=== PATIENT | male | born 1975 | race Hispanic/Latino ===

== ENCOUNTER 2018-04-26 05:54 | Emergency (ER) | payer MEDICAID ==
[2018-04-26] MEDS ORDERED: Sodium Chloride 0.9% 1,000 ML IV STA (06:09)
--- NOTE | 2018-04-26 06:12 | ED PDOC ---
Arrival/HPI - General Chief Complaint: Abdominal Pain Time Seen by Provider: 04/26/18 05:55 Historian: Patient - History of Present Illness Narrative History of Present Illness (Text): 04/26/18 06:09 42 year old male smoker, with no significant past medical history, presents to the emergency department with abdominal pain, since 1 hour prior. Patient states he was getting up for work when he felt sharp pain in his epigastric and perumbilical region. Patient states he vomited and was sweating profusely. Patient states he felt fine last night, and did not eat anything out of the ordinary. Patient denies any fever, chills, headache, dizziness, chest pain, shortness of breath, cough, diarrhea, back pain, neck pain, urinary/bowel changes, or any other complaint. Time/Duration: 1 hour Symptom Onset: Sudden Context: Home Past Medical History - Provider Review Nursing Documentation Reviewed: Yes - Psychiatric Hx Substance Use: No Family/Social History - Physician Review Nursing Documentation Reviewed: Yes Family/Social History: No Known Family HX Smoking Status: Light Smoker < 10 Cigarettes Daily Hx Alcohol Use: No Hx Substance Use: No Allergies/Home Meds Allergies/Adverse Reactions: Allergies Penicillins Adverse Reaction (Verified 04/26/18 06:05) DIZZINESS Home Medications: Home Meds Medication Instructions Recorded Confirmed No Known Home Med 04/26/18 04/26/18 Review of Systems - Physician Review All systems were reviewed & negative as marked: Yes - Review of Systems Constitutional: Normal. absent: Fevers, Night Sweats Eyes: Normal ENT: Normal Respiratory: Normal. absent: SOB, Cough Cardiovascular: Normal. absent: Chest Pain Gastrointestinal: Abdominal Pain, Nausea, Vomiting. absent: Diarrhea Genitourinary Male: Normal. absent: Urinary Output Changes Musculoskeletal: Normal. absent: Back Pain, Neck Pain Skin: Normal Neurological: Normal. absent: Headache, Dizziness Endocrine: Normal Hemo/Lymphatic: Normal Psychiatric: Normal Physical Exam Vital Signs Reviewed: Yes Vital Signs Temp Pulse Resp BP Pulse Ox 04/26/18 09:00 98 F 52 L 18 142/74 99 04/26/18 07:40 97.9 F 59 L 18 132/82 100 04/26/18 06:00 97.4 F L 49 L 22 147/86 100 Temperature: Afebrile Blood Pressure: Normal Pulse: Regular Respiratory Rate: Normal Appearance: Positive for: Well-Appearing, Non-Toxic, Comfortable Pain Distress: None Mental Status: Positive for: Alert and Oriented X 3 - Systems Exam Head: Present: Atraumatic, Normocephalic Pupils: Present: PERRL Extroacular Muscles: Present: EOMI Conjunctiva: Present: Normal Mouth: Present: Moist Mucous Membranes Neck: Present: Normal Range of Motion Respiratory/Chest: Present: Clear to Auscultation, Good Air Exchange. No: Respiratory Distress, Accessory Muscle Use Cardiovascular: Present: Regular Rate and Rhythm, Normal S1, S2. No: Murmurs Abdomen: Present: Tenderness (Epigastric and periumbilical tenderness) Back: Present: Normal Inspection Upper Extremity: Present: Normal Inspection. No: Cyanosis, Edema Lower Extremity: Present: Normal Inspection. No: Edema Neurological: Present: GCS=15, CN II-XII Intact, Speech Normal Skin: Present: Warm, Dry, Normal Color. No: Rashes Psychiatric: Present: Alert, Oriented x 3, Normal Insight, Normal Concentration Medical Decision Making ED Course and Treatment: 04/26/18 06:14 Impression: 42 year old male presents with epigastric and periumbilical pain. Plan: -- CT ABD & Pelvis -- Labs -- Pepcid -- Zofran -- Urinalysis -- Reassess and disposition Prior Visits: Notes and results from previous visits were reviewed. Progress Notes: - Lab Interpretations Lab Results: 04/26/18 06:20 04/26/18 06:20 Lab Results 04/26/18 07:05: Urine Opiates Screen Positive H, Urine Methadone Screen Negative , Ur Barbiturates Screen Negative, Ur Phencyclidine Scrn Negative, Ur Amphetamines Screen Negative, U Benzodiazepines Scrn Negative, U Oth Cocaine Metabols Negative, U Cannabinoids Screen Negative 04/26/18 07:05: Urine Color Yellow, Urine Appearance Clear, Urine pH 6.5, Ur Specific [place] 1.015, Urine Protein Negative, Urine Glucose (UA) Negative, Urine Ketones Negative, Urine Blood Negative, Urine Nitrate Negative, Urine Bilirubin Negative, Urine Urobilinogen 0.2, Ur Leukocyte Esterase Negative 04/26/18 06:20: Alcohol, Quantitative < 10 04/26/18 06:20: Sodium 144, Potassium 4.3, Chloride 103, Carbon Dioxide 30, Anion Gap 15, BUN 18, Creatinine 0.8, Est GFR ( Amer) > 60, Est GFR (Non- Af Amer) > 60, Random Glucose 109, Calcium 9.3, Magnesium 1.9, Total Bilirubin 0.3, AST 20, ALT 26, Alkaline Phosphatase 79, Troponin I < 0.01, Total Protein 7.6, Albumin 4.4, Globulin 3.3, Albumin/Globulin Ratio 1.3, Lipase 99 04/26/18 06:20: WBC 4.9, RBC 4.88, Hgb 14.6, Hct 42.1, MCV 86.3, MCH 29.9, MCHC 34.7, RDW 12.5, Plt Count 132, MPV 9.1, Gran % 51.2, Lymph % (Auto) 37.1 H, [place] % (Auto) 8.2 H, Eos % (Auto) 3.3, Baso % (Auto) 0.2, Gran # 2.50, Lymph # ( Auto) 1.8, [place] # (Auto) 0.4, Eos # (Auto) 0.2, Baso # (Auto) 0.01 - RAD Interpretation Radiology Orders: 04/26/18 06:09 ABD & PELVIS IV CONTRAST ONLY [CT] Stat - EKG Interpretation EKG Interpretation (Text): 04/26/18 06:23 Sinus bradycardia at 46 bpm Interpreted by ED Physician: Yes Type: 12 lead EKG Comparison: No previous EKG avail. - Medication Orders Current Medication Orders: Discontinued Medications Famotidine (Pepcid) 20 mg IVP STAT STA Stop: 04/26/18 06:10 Last Admin: 04/26/18 06:22 Dose: 20 mg IVP Administration Document 04/26/18 06:22 AD (Rec: 04/26/18 06:22 AD [id number] Charges for Administration # of IVP Administrations 1 Sodium Chloride (Sodium Chloride 0.9%) 1,000 mls @ 1,000 mls/hr IV .Q1H STA Stop: 04/26/18 07:08 Last Admin: 04/26/18 06:22 Dose: 1,000 mls/hr eMAR Start Stop Document 04/26/18 06:22 AD (Rec: 04/26/18 06:22 AD [id number]) Intravenous Solution Start Date 04/26/18 Start Time 06:22 Ondansetron HCl (Zofran Inj) 4 mg IVP STAT STA Stop: 04/26/18 06:10 Last Admin: 04/26/18 06:22 Dose: 4 mg IVP Administration Document 04/26/18 06:22 AD (Rec: 04/26/18 06:22 AD [facility] [id number] Charges for Administration # of IVP Administrations 1 - Scribe Statement The provider has reviewed the documentation as recorded by the Scribe Luis Carlos Liu Provider Scribe Attestation: All medical record entries made by the Scribe were at my direction and personally dictated by me. I have reviewed the chart and agree that the record accurately reflects my personal performance of the history, physical exam, medical decision making, and the department course for this patient. I have also personally directed, reviewed, and agree with the discharge instructions and disposition. Disposition/Present on Arrival - Present on Arrival Any Indicators Present on Arrival: No History of DVT/PE: No History of Uncontrolled Diabetes: No Urinary Catheter: No History of Decub. Ulcer: No History Surgical Site Infection Following: None - Disposition Have Diagnosis and Disposition been Completed?: Yes Diagnosis: Abdominal pain, Vomiting Disposition: HOME/ ROUTINE Disposition Time: 09:00 Condition: GOOD Discharge Instructions (ExitCare): Acute Abdomen (Belly Pain), Adult (DC) Additional Instructions: MAURILIO LAN, thank you for letting us take care of you today. Your provider was Nanda Gray MD and you were treated for ABDOMINAL PAIN. The emergency medical care you received today was directed at your acute symptoms. If you were prescribed any medication, please fill it and take as directed. It may take several days for your symptoms to resolve. Return to the Emergency Department if your symptoms worsen, do not improve, or if you have any other problems. Please contact your doctor or call one of the physicians/clinics you have been referred to that are listed on the Patient Visit Information form that is included in your discharge packet. Bring any paperwork you were given at discharge with you along with any medications you are taking to your follow up visit. Our treatment cannot replace ongoing medical care by a primary care provider outside of the emergency department. Thank you for allowing the [facility] team to be part of your care today. If you had an X-Ray or CT scan: A Radiologist will review the ED reading if any change in treatment is needed we will contact you. If you had a blood, urine, or wound culture: It will take several days for the results, if any change in treatment is needed we will contact you. If you had an STI test: It will take 48 hours for the results. Please call after 1 week if you have not heard back. Referrals: Julia Peters MD [Primary Care Provider] - Follow up with primary Forms: [facility] ([place])
[2018-04-26 06:27] LABS: BASO # 0.01 K/mm3 (0.0-2.0); BASO % 0.2 % (0.0-3.0); EOS # 0.2 (0.0-0.7); EOS % 3.3 % (1.5-5.0); GRAN # 2.5 (1.4-6.5); GRAN % 51.2 % (50.0-68.0); HEMOGLOBIN 14.6 g/dL (14.0-18.0); LYMPH # 1.8 (1.2-3.4); LYMPH % 37.1 % (22.0-35.0); MEAN CELL VOLUME 86.3 fl (80.0-105.0); MEAN CORPUSCULAR HEMOGLOBIN 29.9 pg (25.0-35.0); MEAN CORPUSCULAR HGB CONC 34.7 g/dl (31.0-37.0); MEAN PLATELET VOLUME 9.1 fl (7.0-11.0); MONO # 0.4 (0.1-0.6); MONO % 8.2 % (1.0-6.0); RBC 4.88 10^6/uL (3.5-6.1); RED CELL DISTRIBUTION WIDTH 12.5 % (11.5-14.5); WHITE BLOOD COUNT 4.9 10^3/ul (4.5-11.0)
[2018-04-26 06:38] LABS: ALB/GLOB RATIO 1.3 (1.1-1.8); ALBUMIN 4.4 g/dL (3.0-4.8); ALT/SGPT 26 U/L (7-56); AST/SGOT 20 U/L (17-59); BLOOD UREA NITROGEN 18 mg/dL (7-21); CALCIUM 9.3 mg/dL (8.4-10.5); GFR NON-AFRICAN AMERICAN > 60; LIPASE 99 U/L (23-300)
[2018-04-26] MEDS ORDERED: Iohexol 350 MG/100 ML VIAL ONE (06:43)
[2018-04-26 06:48] LABS: TROPONIN I < 0.01 ng/mL
--- NOTE | 2018-04-26 07:13 | ED PDOC ---
Physical Exam Vital Signs Reviewed: Yes Vital Signs Temp Pulse Resp BP Pulse Ox 04/26/18 07:40 97.9 F 59 L 18 132/82 100 04/26/18 06:00 97.4 F L 49 L 22 147/86 100 Temperature: Hypothermic Blood Pressure: Hypotensive Pulse: Regular Respiratory Rate: Normal Appearance: Positive for: Well-Appearing, Non-Toxic, Comfortable Pain Distress: None Mental Status: Positive for: Alert and Oriented X 3 Medical Decision Making ED Course and Treatment: 04/26/18 07:11 Patient endorsed to me by Dr. Nava, patient is a 42 year old male presenting to the emergency department complaining of abdominal pain. Labs have returned, currently waiting for CT. 04/26/18 08:36 Dictator: William Gracia MD Procedure: CT Abdomen and Pelvis With Intravenous Contrast Impression: Moderate fecal retention 04/26/18 08:47 Upon reassessment, patient reports pain has subsided. Patient will be cleared for discharge. - Lab Interpretations Lab Results: 04/26/18 06:20 04/26/18 06:20 Lab Results 04/26/18 07:05: Urine Opiates Screen Positive H, Urine Methadone Screen Negative , Ur Barbiturates Screen Negative, Ur Phencyclidine Scrn Negative, Ur Amphetamines Screen Negative, U Benzodiazepines Scrn Negative, U Oth Cocaine Metabols Negative, U Cannabinoids Screen Negative 04/26/18 07:05: Urine Color Yellow, Urine Appearance Clear, Urine pH 6.5, Ur Specific [place] 1.015, Urine Protein Negative, Urine Glucose (UA) Negative, Urine Ketones Negative, Urine Blood Negative, Urine Nitrate Negative, Urine Bilirubin Negative, Urine Urobilinogen 0.2, Ur Leukocyte Esterase Negative 04/26/18 06:20: Alcohol, Quantitative < 10 04/26/18 06:20: Sodium 144, Potassium 4.3, Chloride 103, Carbon Dioxide 30, Anion Gap 15, BUN 18, Creatinine 0.8, Est GFR ( Amer) > 60, Est GFR (Non- Af Amer) > 60, Random Glucose 109, Calcium 9.3, Magnesium 1.9, Total Bilirubin 0.3, AST 20, ALT 26, Alkaline Phosphatase 79, Troponin I < 0.01, Total Protein 7.6, Albumin 4.4, Globulin 3.3, Albumin/Globulin Ratio 1.3, Lipase 99 04/26/18 06:20: WBC 4.9, RBC 4.88, Hgb 14.6, Hct 42.1, MCV 86.3, MCH 29.9, MCHC 34.7, RDW 12.5, Plt Count 132, MPV 9.1, Gran % 51.2, Lymph % (Auto) 37.1 H, [place] % (Auto) 8.2 H, Eos % (Auto) 3.3, Baso % (Auto) 0.2, Gran # 2.50, Lymph # ( Auto) 1.8, [place] # (Auto) 0.4, Eos # (Auto) 0.2, Baso # (Auto) 0.01 - RAD Interpretation Radiology Orders: 04/26/18 06:09 ABD & PELVIS IV CONTRAST ONLY [CT] Stat - Medication Orders Current Medication Orders: Discontinued Medications Famotidine (Pepcid) 20 mg IVP STAT STA Stop: 04/26/18 06:10 Last Admin: 04/26/18 06:22 Dose: 20 mg IVP Administration Document 04/26/18 06:22 AD (Rec: 04/26/18 06:22 [id number] Charges for Administration # of IVP Administrations 1 Sodium Chloride (Sodium Chloride 0.9%) 1,000 mls @ 1,000 mls/hr IV .Q1H STA Stop: 04/26/18 07:08 Last Admin: 04/26/18 06:22 Dose: 1,000 mls/hr eMAR Start Stop Document 04/26/18 06:22 AD (Rec: 04/26/18 06:22 AD [id number]) Intravenous Solution Start Date 04/26/18 Start Time 06:22 Ondansetron HCl (Zofran Inj) 4 mg IVP STAT STA Stop: 04/26/18 06:10 Last Admin: 04/26/18 06:22 Dose: 4 mg IVP Administration Document 04/26/18 06:22 AD (Rec: 04/26/18 06:22 AD [id number] Charges for Administration # of IVP Administrations 1 - Scribe Statement The provider has reviewed the documentation as recorded by the Scribe Disposition/Present on Arrival - Present on Arrival Any Indicators Present on Arrival: No History of DVT/PE: No History of Uncontrolled Diabetes: No Urinary Catheter: No History of Decub. Ulcer: No History Surgical Site Infection Following: None - Disposition Have Diagnosis and Disposition been Completed?: Yes Diagnosis: Abdominal pain, Vomiting Disposition: HOME/ ROUTINE Disposition Time: 09:01 Condition: GOOD Discharge Instructions (ExitCare): Acute Abdomen (Belly Pain), Adult (DC) Additional Instructions: MAURILIO LAN, thank you for letting us take care of you today. Your provider was Nanda Gray MD and you were treated for ABDOMINAL PAIN. The emergency medical care you received today was directed at your acute symptoms. If you were prescribed any medication, please fill it and take as directed. It may take several days for your symptoms to resolve. Return to the Emergency Department if your symptoms worsen, do not improve, or if you have any other problems. Please contact your doctor or call one of the physicians/clinics you have been referred to that are listed on the Patient Visit Information form that is included in your discharge packet. Bring any paperwork you were given at discharge with you along with any medications you are taking to your follow up visit. Our treatment cannot replace ongoing medical care by a primary care provider outside of the emergency department. Thank you for allowing the [facility] team to be part of your care today. If you had an X-Ray or CT scan: A Radiologist will review the ED reading if any change in treatment is needed we will contact you. If you had a blood, urine, or wound culture: It will take several days for the results, if any change in treatment is needed we will contact you. If you had an STI test: It will take 48 hours for the results. Please call after 1 week if you have not heard back. Referrals: Julia Peters MD [Primary Care Provider] - Follow up with primary Forms: [employer] ([place])
[2018-04-26 07:28] LABS: PH,URINE 6.5 (4.7-8.0); URINE BILIRUBIN NEGATIVE (NEGATIVE); URINE BLOOD NEGATIVE (NEGATIVE); URINE GLUCOSE (UA) NEGATIVE (NEGATIVE); URINE LEUKOCYTE ESTERASE NEGATIVE Leu/uL (NEGATIVE); URINE PROTEIN NEGATIVE mg/dL (<30 mg/dL); URINE UROBILINOGEN 0.2 E.U./dL (<1 E.U./dL)
[2018-04-26 07:30] LABS: URINE APPEARANCE CLEAR (CLEAR); URINE COLOR YELLOW (YELLOW)
[2018-04-26 07:41] VITALS: RESP 18
[2018-04-26 07:50] LABS: BARBITURATES, UR NEGATIVE (NEGATIVE); BENZODIAZEPINES, UR NEGATIVE (NEGATIVE); OPIATES, UR POSITIVE (NEGATIVE); PHENCYCLIDINE, UR NEGATIVE (NEGATIVE)
[2018-04-26 09:01] VITALS: BP 142/74; PULSE 52; TEMP 98; O2SAT 99
--- NOTE | 2018-04-26 09:50 | CT ---
Date of service: 04/26/2018 PROCEDURE: CT Abdomen and Pelvis with contrast HISTORY: periumbilical abdominal pain COMPARISON: None. TECHNIQUE: Contrast dose: 100 cc of Omni 350 Radiation dose: Total exam DLP = 366 mGy-cm. This CT exam was performed using one or more of the following dose reduction techniques: Automated exposure control, adjustment of the mA and/or kV according to patient size, and/or use of iterative reconstruction technique. FINDINGS: LOWER THORAX: Unremarkable. LIVER: Unremarkable. No gross lesion or ductal dilatation. GALLBLADDER AND BILE DUCTS: Unremarkable. PANCREAS: Unremarkable. No gross lesion or ductal dilatation. SPLEEN: Unremarkable. ADRENALS: Unremarkable. No mass. KIDNEYS AND URETERS: Unremarkable. No hydronephrosis. No solid mass. VASCULATURE: Unremarkable. No aortic aneurysm. BOWEL: Unremarkable. No obstruction. No gross mural thickening. Moderate fecal retention APPENDIX: Normal appendix. PERITONEUM: Unremarkable. No free fluid. No free air. LYMPH NODES: Unremarkable. No enlarged lymph nodes. BLADDER: Unremarkable. REPRODUCTIVE: Unremarkable. BONES: No acute fracture. OTHER FINDINGS: The report concurs with the preliminary [facility] report IMPRESSION: No acute intra-abdominal findings. Moderate fecal retention
--- NOTE | 2018-04-26 21:26 | CARD ---
APPROVED REPORT Date of service: 04/26/2018 EKG Measurement Heart [id number] <Conclusion> Marked sinus bradycardia with sinus arrhythmia Moderate voltage criteria for LVH, may be normal variant Abnormal ECG
== END 2018-04-26 09:00 | disposition home or self-care (01) ==
LOC: ED 05:54
DX: R10.13 Epigastric pain (principal); R10.33 Periumbilical pain; R11.10 Vomiting, unspecified; F17.210 Nicotine dependence, cigarettes, uncomplicated
CPT/HCPCS: 74177; 80053; 80320; 80324; 80345; 80346; 80349; 80353; 80358; 80361; 81003; 83690; 83735; 83992; 84484; 85025; 87086; 93005; 96374; 96375; 99283; J2405; J7030; Q9967